=== PATIENT | female | born 2000 | race Caucasian/White ===

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

== ENCOUNTER 2021-05-01 14:42 | Outpatient (REF) | payer MEDICAID, SELFPAY ==
--- NOTE | 2021-05-01 13:15 | PAPFT_PTH ---
PATIENT: Marce Reynoso LOC: [facility] U#:[id number] AGE/SX: 20/F ROOM: RE05/01/[address]: Sheryl Freeman NP : 2000 BED: DIS: 05/01/2021 SPEC #: [id number] RECD: 05/01/21 18:24 STATUS: YOUSIF BEVERLY #: [id number] ELSA: 05/01/21 13:[address]: Sheryl Freeman NP DEPT: [facility] Cytology RECD BY: Skyla Macario ENTERED: 05/01/21 18:24 SP TYPE: PAPFT OTHR DR: Mary Quarles APRN Tissues: 1 - CX/ENDOCX FOR PAP SMEARS Procedures: PAP THIN PREP/[facility] Screening Comments: [id number]
== END 2021-05-01 14:43 | disposition home or self-care (01) ==
LOC: LBN 14:42
PROVIDERS: Visit Provider Nurse Practitioner Women's Health
DX: Z12.4 Encounter for screening for malignant neoplasm of cervix (principal)
CPT/HCPCS: 88142

== ENCOUNTER 2021-05-16 00:50 | Outpatient (CLI) | payer MEDICAID, SELFPAY ==
--- NOTE | 2021-05-16 06:45 | DI.US_ITS ---
Exam(s) US PELVIS TRANSVAGINAL EXAM: US PELVIS TRANSVAGINAL CLINICAL HISTORY: IUD surveillence, new onset cramping,PELVIC PAIN,Z30.431,R10.2. TECHNIQUE: Transabdominal and transvaginal pelvic ultrasound was performed using standard protocol. COMPARISON: US ABDOMEN ULTRASOUND (P) from 05/24/2015 FINDINGS: KIDNEYS: Kidneys are symmetric in size. No evidence of renal calculi. No evidence of hydronephrosis. No renal mass or cyst identified. UTERUS: Position: Anteverted. Size: 6.9 long by 3.3 AP by 4.6 transverse cm Endometrium: 0.8 cm. Normal for patient's menstrual status. There is an IUD in good position within t he endometrial canal. Myometrium: Unremarkable. Cervix: Unremarkable. OVARIES: Right: cm Cyst or mass: No suspicious cystic or solid masses. Left: cm Cyst or mass: No suspicious cystic or solid masses. DOPPLER: Color: Symmetric and uniform flow to both ovaries. No hyperemia. Duplex: Normal ovarian arterial waveforms visualized. CUL-DE-SAC: Free fluid: Trace amount of free fluid in the cul-de-sac which is likely physiologic. Other: None. IMPRESSION: 1. Normal sonographic appearance of the kidneys. 2. IUD is in good position within the endometrial canal. 3. Unremarkable bilateral ovaries. DATA REPOSITORY:
== END 2021-05-16 01:10 ==
PROVIDERS: Visit Provider Nurse Practitioner Women's Health
DX: R10.2 Pelvic and perineal pain (principal); Z30.431 Encounter for routine checking of intrauterine contraceptive device
CPT/HCPCS: 76830; 76856

== ENCOUNTER 2021-06-26 03:03 | Outpatient (CLI) | payer MEDICAID, SELFPAY ==
[2021-06-26 12:35] LABS: Abs Immature Grans 0.04 10^3/uL (0.0-0.06); Absolute Basophil Count 0.04 10^3/uL (0.0-0.2); Absolute Eosinophil Count 0.28 10^3/uL (0.0-0.7); Absolute Lymphocyte Count 3.21 10^3/uL (1.2-3.4); Basophils % 0.3; Eosinophils % 2.2; HCT 44.6 % (36.0-46.0); HGB 14.8 g/dL (11.2-15.7); Immature Grans % 0.3; Lymphocytes % 25.2; MCH 29.4 pg (27.0-33.0); MCHC 33.2 % (32.0-36.0); MCV 88.5 fL (80-95); MPV 10.2 fL (8.0-11.0); Monocytes % 5.5; Neutrophils % 66.5; Nucleated RBC 0 %; Platelet Count 260 10^3/uL (130-400); RBC 5.04 10^6/uL (3.93-5.22); RDW 12.4 % (11.7-14.6); RDW-SD 40.5 fL; WBC 12.72 10^3/uL (4.4-10.8)
[2021-06-26 12:36] LABS: Absolute Neutrophil Count 8.46 10^3/uL (1.2-6.7)
== END 2021-06-26 03:04 | disposition home or self-care (01) ==
LOC: LBO 03:03
PROVIDERS: Visit Provider Nurse Practitioner
DX: R22.2 Localized swelling, mass and lump, trunk (principal)
CPT/HCPCS: 36415; 85025

== ENCOUNTER → 2021-07-19 00:18 | Outpatient (CLI) | payer MEDICAID, SELFPAY ==
--- NOTE | 2021-07-19 07:00 | DI.US_ITS ---
Exam(s) US AXILLA RT EXAM: US AXILLA RT CLINICAL HISTORY: increase in size, tender lump of axilla, r22.30 TECHNIQUE: Ultrasound right axilla performed using standard protocol. COMPARISON: No exams were available for comparison FINDINGS: There is a hypoechoic lesion measuring 1.5 x 4 x 0.5 cm located beneath the subcutaneous fat in the a xilla which corresponds to the area of the patient's tenderness. It contains a small cystic componen t. Findings could represent a reactive lymph node or sebaceous cyst. DATA REPOSITORY:
== END ==
PROVIDERS: Visit Provider Nurse Practitioner
DX: R22.31 Localized swelling, mass and lump, right upper limb (principal)
CPT/HCPCS: 76642

== ENCOUNTER → 2021-10-17 18:01 | Outpatient (CLI) | payer MEDICAID, SELFPAY ==
--- NOTE | 2021-10-17 18:00 | DI.RAD_ITS ---
Exam(s) XR FOOT LT COMPLETE EXAM: XR FOOT LT COMPLETE CLINICAL HISTORY: left foot pain. TECHNIQUE: 2D digital imaging was performed. Three views. COMPARISON: CR LEFT ANKLE COMPLETE from 11/20/2016 CR LEFT FOOT COMPLETE from 11/20/2016 CR LEFT FOOT COMPLETE from 12/19/2016 CR LEFT FOOT COMPLETE from 01/16/2017 FINDINGS: BONES: Slight deformity of 5th metatarsal related to old fracture seen on prior exams. Subacute appe aring nondisplaced fracture of the 4th metatarsal at the proximal shaft. No acute fracture is presen t. No bony destructive lesion is seen. JOINTS: No dislocation present. SOFT TISSUE: Normal. Dorsal soft tissue swelling over metatarsal region. IMPRESSION: Subacute nondisplaced fracture the proximal shaft of the 4th metatarsal. DATA REPOSITORY: RADIATION DOSE DELIVERED:
--- NOTE | 2021-10-17 19:16 | DI.VRAD_ITS ---
PROCEDURE INFORMATION: Exam: XR Left Foot Exam date and time: 10/17/2021 6:31 PM Age: 21 years old Clinical indication: Other: Left foot pain; Patient HX: Previous FX 4 years ago TECHNIQUE: Imaging protocol: Radiologic exam of the Left foot. Views: 3 or more views. COMPARISON: CR LEFT FOOT COMPLETE 04/29/2017 12:01 PM FINDINGS: Bones/joints: Chronic appearing fracture deformity of the 5th metatarsal. Two horizontally oriented linear lucencies partially traversing the lateral aspect of the proximal 4th metatarsal with mildly sclerotic margins, likely healing fractures or stress fractures. Spurring of the anterior distal tibia. No acute fracture. No aggressive bone destruction. Joint spaces are within normal limits. Soft tissues: Soft tissue swelling of the dorsal forefoot. IMPRESSION: 1. Two horizontally oriented linear lucencies partially traversing the lateral aspect of the proximal 4th metatarsal with mildly sclerotic margins, likely healing fractures or stress fractures. 2. Spurring of the anterior distal tibia. 3. Soft tissue swelling of the dorsal forefoot. Dictated and Authenticated by: Celeste Blancas MD. Ordering:KJ Willams MD
== END ==
PROVIDERS: Visit Provider Physician Assistant
DX: M79.672 Pain in left foot (principal); S92.345A Nondisplaced fracture of fourth metatarsal bone, left foot, initial encounter for closed fracture
CPT/HCPCS: 73630

== ENCOUNTER 2021-11-07 12:14 | Outpatient (CLI) | payer MEDICAID, SELFPAY ==
--- NOTE | 2021-11-07 09:00 | DI.RAD_ITS ---
Exam(s) XR FOOT LT COMPLETE EXAM: XR FOOT LT COMPLETE CLINICAL HISTORY: 4th toe fracture. TECHNIQUE: 2D digital imaging was performed. COMPARISON: CR,XR XR FOOT LT COMPLETE from 10/17/2021 FINDINGS: 3 views Again noted is a transverse fracture in the proximal half of the 4th metatarsal. Fracture line is st ill visible but there is been slight further healing and no displacement. No additional fractures ev ident. No diastasis of the Lisfranc joint. No osseous lesions nor erosions. IMPRESSION: DATA REPOSITORY: RADIATION DOSE DELIVERED:
== END 2021-11-07 12:15 | disposition home or self-care (01) ==
LOC: DIORS 12:14
PROVIDERS: Visit Provider Physician Assistant
DX: S92.502D Displaced unspecified fracture of left lesser toe(s), subsequent encounter for fracture with routine healing (principal); X58.XXXD Exposure to other specified factors, subsequent encounter
CPT/HCPCS: 73630

== ENCOUNTER 2021-12-27 11:17 | Outpatient (CLI) | payer MEDICAID, SELFPAY ==
--- NOTE | 2021-12-27 10:45 | DI.RAD_ITS ---
Exam(s) XR FOOT LT COMPLETE EXAM: XR FOOT LT COMPLETE CLINICAL HISTORY: fx L foot TECHNIQUE: COMPARISON: CR XR FOOT LT COMPLETE from 11/07/2021 FINDINGS: Three views were obtained. There is a persistent visible fracture plane of the transverse fracture o f the proximal diaphysis of the 4th metatarsal, no change in appearance comparison with prior examina tion of November 07. IMPRESSION: RADIATION DOSE DELIVERED: Total DLP
== END 2021-12-27 11:18 | disposition home or self-care (01) ==
LOC: DIORS 11:17
PROVIDERS: Visit Provider Physician Assistant
DX: S92.342D Displaced fracture of fourth metatarsal bone, left foot, subsequent encounter for fracture with routine healing (principal); X58.XXXD Exposure to other specified factors, subsequent encounter
CPT/HCPCS: 73630

== ENCOUNTER 2022-08-20 21:34 | Outpatient (REF) | payer MEDICAID, SELFPAY ==
[2022-08-23 15:47] LABS: Chlamydia Result Negative (Negative); GC Result Negative (Negative)
== END 2022-08-20 21:35 | disposition home or self-care (01) ==
LOC: LBN 21:34
PROVIDERS: PCP Nurse Practitioner Family; Visit Provider Nurse Practitioner Family
DX: Z11.3 Encounter for screening for infections with a predominantly sexual mode of transmission (principal)
CPT/HCPCS: 87491; 87591

== ENCOUNTER 2022-11-01 21:17 | Emergency (ER) | payer MEDICAID, SELFPAY ==
[2022-11-01 21:24] VITALS: BP 121/70; PULSE 86; RESP 19; TEMP 37.3; O2SAT 98
--- NOTE | 2022-11-01 22:46 | ED.GENADUL_ITS ---
Discharge Plan Disposition Patient Disposition: Home Discharge Details Clinical Impression: Acute streptococcal pharyngitis Primary Care Provider: Archana Campbell ED Provider: Barrington Forte Home Meds and New Rx's Prescriptions: New amoxicillin 500 mg capsule 500 mg PO BID Qty: 20 0RF Continued Mirena 20 mcg/24 hours (5 yrs) 52 mg intrauterine device 1 device IY ONCE Rx Instructions: Inserted 11/03/18 ibuprofen 800 mg tablet 800 mg PO Q12H PRN (Reason: headache) Qty: 60 4RF tretinoin 0.025 % cream 20 applic Topical .QD PRN (Reason: acne) Qty: 20 3RF escitalopram oxalate 20 mg tablet 20 mg PO DAILY Qty: 90 3RF sumatriptan succinate 50 mg tablet 50 mg PO Q2H PRN (Reason: migraine headache) Qty: 60 1RF Rx Instructions: Take 1 tab at onset of headache; if no relief may repeat 1 tab in 2hr Discharge Instructions Instructions: Strep Throat (ED) Additional Instructions: You may continue to use [id number] pain medication or throat lozenges or spray as needed for discomfort. Please take medication as prescribed and complete the antibiotic until all pills are gone and do not save medications. If you develop any new or significant worsening of your symptoms return the emergency department for reassessment otherwise follow-up with primary care provider Referrals: Archana Campbell, [employer] [Primary Care Provider] - (As needed for reassessment) Discharge Data Discharge Date/Time-TO BE ENTERED AT DEPARTURE: 11/01/22 22:59 Medical Decision Making Patient presenting the emergency department for chief complaint of sore throat. Patient reports isolated sore throat that started this morning and is getting progressively worse as the days gone on. Patient denies any sick contacts. Physical exam shows tonsillar erythema and mild exudates otherwise unremarkable exam. Exam consistent with Pharyngitis with consideration of possible strep. no signs of deep neck space infection ( Retropharyngeal abscess, Soto's angina, Parapharyngeal space infection, Peritonsillar Abscess ([employer])) or Epiglottitis. Pt non toxic and stable. Rapid strep was performed and was positive. Discussed with patient risk versus benefits of the antibiotics versus NSAIDs or steroids and after full discussion patient states that she would prefer to be started on antibiotics. Patient started on amoxicillin. After discussion of diagnosis and plan of care patient has no further needs, questions, or concerns and states clear understanding to return to the emergency department for any worsening symptoms. This documentation was generated using [employer] dictation system, please disregard any oddities of phrase or misspellings. HPI General Mode of arrival: ambulatory . Date/Time Provider Initiated Documentation: 11/01/22 21:28 . Limitations to Documentation: no limitations . Information obtained by: patient and RN notes reviewed . History of Present Illness 22 year old F presents to the emergency department with the chief complaint of sore throat, described as moderate, Quality is described as aching, Patient started experiencing this hour(s) (12) and it has been constant. No relieving factors improve symptom(s), No exacerbating factors reported . Patient notes no other symptoms.. Related Data Home Medications Medication Instructions Recorded Confirmed levonorgestrel 21 mcg/24 hours (8 1 device intrauterine ONCE 01/22/19 11/01/22 yrs) 52 mg intrauterine device (Mirena) sumatriptan succinate 50 mg tablet 50 mg PO Q2H PRN migraine headache 01/22/19 11/01/22 #60 tabs ibuprofen 800 mg tablet 800 mg PO Q12H PRN headache #60 04/11/22 11/01/22 tabs tretinoin 0.025 % topical cream 20 applic topical .QD PRN acne #20 04/11/22 11/01/22 grams escitalopram oxalate 20 mg tablet 20 mg PO DAILY #90 tabs 10/01/22 11/01/22 amoxicillin 500 mg capsule 500 mg PO BID #20 caps 11/01/22 Previous Rx's Medication Instructions Recorded sumatriptan succinate 50 mg tablet 50 mg PO Q2H PRN migraine headache 01/22/19 #60 tabs ibuprofen 800 mg tablet 800 mg PO Q12H PRN headache #60 04/11/22 tabs tretinoin 0.025 % topical cream 20 applic topical .QD PRN acne #20 04/11/22 grams escitalopram oxalate 20 mg tablet 20 mg PO DAILY #90 tabs 10/01/22 amoxicillin 500 mg capsule 500 mg PO BID #20 caps 11/01/22 Allergies Allergy/AdvReac Type Severity Reaction Status Date / Time oxycodone HCl [From Percocet] Allergy Mild Hives/Itchi Verified 10/01/22 14:46 ng clarithromycin Allergy Unknown hives Verified 10/01/22 14:46 doxycycline Allergy Unknown Hives Verified 10/01/22 14:46 General Stated Complaint: Sorethroat DESTINEY: 5 Review of Systems Constitutional Constitutional: Denies chills, Denies fever(s), Denies headache(s) and Reports malaise ENT Ears, Nose, Mouth, and Throat: Denies change in voice, Denies dysphagia, Denies otalgia, Denies headache(s), Denies hoarseness, Denies lip swelling, Denies mouth lesions, Denies nasal congestion, Reports odynophagia, Reports sore throat, Denies throat swelling and Denies tongue swelling Cardiovascular Cardiovascular: Denies chest pain Respiratory Respiratory: Denies chest congestion and Denies cough Gastrointestinal Gastrointestinal: Denies dysphagia and Reports odynophagia Neurologic Neurologic: Denies headache(s) Allergic/Immunologic Allergic/Immunologic: Denies lip swelling, Denies throat swelling and Denies tongue swelling PFSH All Active Problems (Updated 11/01/22 @ 22:46 by Barrington Forte NP) Acute streptococcal pharyngitis (Acute) Major depressive disorder, recurrent (Chronic) [place] admissions 02/2014 and 08/2014 for depression, suicide attempt, cutting Generalized anxiety disorder (Chronic) Borderline personality disorder (Chronic) Post-traumatic stress disorder (Chronic) Migraine headache without aura (Chronic) Cigarette smoker (Chronic) Acne vulgaris (Chronic) IUD surveillance (Chronic) Mirena IUD inserted 2018 Obesity, Class III, BMI 40-49.9 (morbid obesity) (Chronic) Medical History Suicide attempt Surgical History S/P ORIF (open reduction internal fixation) fracture (~09/2014) Left 5th finger at [facility] Family History Mother Hyperlipidemia Asthma Hypertension Father Asthma Hyperlipidemia Type 2 diabetes mellitus COPD (chronic obstructive pulmonary disease) Heart disease Hypertension Brother , 36 Substance abuse Alcohol abuse Brother No problems noted. Sister Alcohol abuse Maternal Grandfather Hyperlipidemia Hypertension Maternal Grandmother No problems noted. Paternal Grandfather , in a war? No problems noted. Paternal Grandmother Obstructive sleep apnea Hypertension Social History Smoking/Tobacco Use Status: Current every day Tobacco Type: e-cigarettes Tobacco: How many years used: 7 Quit status: considering quitting Counseling given: provider counseling Smoking risk assessment performed?: Yes Alcohol Intake: current Alcohol Intake frequency: a few times a month Drug use: Occasionally Substance use type: does not use Counseling given: Yes Counseling provided: provider counseling Adopted: No Caregiver/Support person: No Household members: significant other Housing: house Communication Needs: None Do you need help understanding health information?: Rarely current occupation: works at [employer] Pets and animals: Yes Pets and animals: dog(s) Sexually active: Yes Do you think of yourself as: bisexual Current gender identity: female What is your relationship status?: never How often do you talk on the phone with friends or family?: three or more times per week How often do you get together with friends or relatives?: three or more times per week How often do you attend jewish or temple services?: 1-3 times per year Do you belong to any clubs or organized social groups?: no Panel score (0-1 are the most socially isolated patients): 1 What type of physical activity do you participate in: none Frequency: does not exercise Sandra/Advent: None Special sandra needs: No Seatbelt use: always Helmet use: No Drive intox or ride w/intox tow car driver: No Do you feel safe at home: Yes Do you feel safe in your relationship?: Yes Female Reproductive History Menstrual Age of Menarche: 10 control method: progestin IUCD (Mirena inserted 11/03/18) History History 0 Para Hx # Term Pregnancies Multiple births Hx # Pregnancies Ectopic pregnancies AB induced Hx Number of Living Children AB spontaneous Exam Const General: cooperative, healthy appearing, comfortable, no acute distress and not ill appearing Orientation: alert, awake and oriented x3 HENMT Head: normal to inspection and normocephalic Ears: hearing grossly normal bilaterally, external ears normal, TM's normal bilaterally and mastoids normal General nose exam: external nose normal and nares normal Face and sinus: normal facial exam Mouth: oral mucosae normal, lip normal, tongue normal, no audible dysphonia, no drooling and no trismus Throat: uvula midline, abnormal tonsil bilaterally erythema and hypertrophy 1+ and no peritonsillar masses Neck Neck: normal visual inspection, full ROM, no lymphadenopathy and no meningeal signs Resp Effort & Inspection: normal respiratory effort, able to speak in complete sentences and no stridor Auscultation: clear to auscultation bilaterally Cardio Rate: regular rate Rhythm: regular rhythm Heart Sounds: S1 normal and S2 normal Skin General skin exam: no rashes or lesions noted Course Vital Signs Vital signs: Vital Signs Temperature 37.3 C 11/01/22 21:24 Pulse 86 11/01/22 21:24 Respiratory Rate 19 11/01/22 21:24 Blood Pressure 121/70 11/01/22 21:24 Pulse Oximetry 98 11/01/22 21:24 Temperature 37.3 C 11/01/22 21:24 Temperature Source Oral 11/01/22 21:24 Pulse 86 11/01/22 21:24 Respiratory Rate 19 11/01/22 21:24 Respiratory Effort Normal, Non-Labored 11/01/22 21:45 Blood Pressure 121/70 11/01/22 21:24 Blood Pressure Position Sitting 11/01/22 21:24 Pulse Oximetry 98 11/01/22 21:24 Oxygen Delivery Method Room Air 11/01/22 21:24 Oxygen Flow Rate 0 11/01/22 21:24 Pain Level 5 11/01/22 21:24 Lab/Test Results Lab/Test Results: POC Strep Test-EVI(Rapid) Start: 11/01/22 21:21 Freq: .Rapid Strep Test Status: Active Protocol: Document 11/01/22 21:45 AB (Rec: 11/01/22 21:47 AB [id number]) Strep test-EVI(Rapid)-POC POC-Strep test-EVI (Rapid) Positive POC-Strep test-EVI (Rapid) Positive PAWSS Have you Been Recently Intoxicated or Drunk Within the Last 30 days?: No Have you Ever Experienced Previous Episodes of Alcohol Withdrawal?: No Have you ever Experienced Withdrawal Seizures?: No Have you ever Experienced Delirium Tremens(DT)s?: No Have you ever undergone Alcohol Rehabilitation Treatment (i.e, inpt ot outpatient treatment programs)?: No Have you ever Experienced Blackouts?: No Have you ever Combined Alcohol with other Downers within the last 90 days?: No Have you ever Combined Alcohol with any other Substance of Abuse during the last 90 days?: No Positive Blood Alcohol level on Presentation? [PCS.BAL]: No Evidence of Increased Autonomic Activity (i.e. HR>120, tremor, sweating, agitation, nausea)?: No Result: 0
[2022-11-01] MEDS: Amoxicillin 500 MG CAP PO (22:51)
[2022-11-01 22:58] VITALS: PULSE 88; RESP 18; TEMP 37.4; O2SAT 97
== END 2022-11-01 22:59 | disposition home or self-care (01) ==
PROVIDERS: Emergency Provider Nurse Practitioner Family; PCP Nurse Practitioner Family
DX: J02.0 Streptococcal pharyngitis
CPT/HCPCS: 87880; 99283

== ENCOUNTER 2022-12-09 16:15 | Emergency (ER) | payer MEDICAID, SELFPAY ==
--- NOTE | 2022-12-09 16:15 | DI.RAD_ITS ---
Exam(s) XR FOOT LT COMPLETE EXAM: XR FOOT LT COMPLETE CLINICAL HISTORY: Left lateral foot pain, injury. TECHNIQUE: 2D digital imaging was performed. COMPARISON: CR XR FOOT LT COMPLETE from 12/27/2021 FINDINGS: 3 views There is no evidence of acute fracture or diastasis of the Lisfranc joint. There is a partially heal ed transverse fracture in the proximal half of the 4th metatarsal, as previously present. No degener ative changes. No osseous lesions nor erosions. No pes planus. No inferior calcaneal spur. IMPRESSION: As above. No acute fractures. DATA REPOSITORY: RADIATION DOSE DELIVERED:
[2022-12-09 16:16] VITALS: BP 127/64; PULSE 110; RESP 18; TEMP 36.8; O2SAT 97
--- NOTE | 2022-12-09 16:29 | W.ED.GENAD ---
Discharge Plan Disposition Patient Disposition: Home Condition: Stable Discharge Details Clinical Impression: Sprain of foot, left Primary Care Provider: Archana Campbell ED Provider: Melody Gabriel Home Meds and New Rx's Prescriptions: Continued Mirena 20 mcg/24 hours (5 yrs) 52 mg intrauterine device 1 device IY ONCE Rx Instructions: Inserted 11/03/18 ibuprofen 800 mg tablet 800 mg PO Q12H PRN (Reason: headache) Qty: 60 4RF tretinoin 0.025 % cream 20 applic Topical .QD PRN (Reason: acne) Qty: 20 3RF escitalopram oxalate 20 mg tablet 20 mg PO DAILY Qty: 90 3RF sumatriptan succinate 50 mg tablet 50 mg PO Q2H PRN (Reason: migraine headache) Qty: 60 1RF Rx Instructions: Take 1 tab at onset of headache; if no relief may repeat 1 tab in 2hr amoxicillin 500 mg capsule 500 mg PO BID Qty: 20 0RF Patient Comments: RX completed 12/09/22 CT Discharge Instructions Instructions: Foot Sprain (ED) Additional Instructions: Wear the walking boot as needed for comfort. Rest ice compression elevation. Please take Tylenol or Ibuprofen with food every 4-6 hours as needed for pain and swelling. Please follow-up after 2 to 3 weeks with orthopedics if continued pain or any worsening pain. No evidence of acute fractures or broken bones on the x-ray. I do suspect a sprain. This may take up to 4 to 6 weeks to completely heal. Stand Alone Forms: Work Release Referrals: Gigi Chacon PA [PHYSICIANS PROCESS CAMERA OPERATOR] - 2 weeks Discharge Data Discharge Date/Time-TO BE ENTERED AT DEPARTURE: 12/09/22 18:05 Medical Decision Making 22-year-old female presents to the ER with a chief complaint of left foot pain after rolling her foot and feeling a crunch after stepping off a step approximately an hour prior to arrival. She reports that she has broken her foot in the past. She does have lateral foot pain with palpation no obvious deformity she does have some swelling. Denies any ankle pain distal CMS is intact. She has a past medical history of depressive disorder, anxiety borderline personality disorder, PTSD migraines, she is a smoker she reports she has no possibility of she is on control. No other associated symptoms or complaints at this time. She does have a healing bruise noted to her left lateral calf. It is nontender with palpation. X-ray negative for acute fracture. Will place patient in a walking boot with crutches if needed instructed on RICE procedures and follow-up if no better in 2 to 3 weeks. This text was generated using Sensus Experienceation system, please disregard any oddities of phrase or misspellings. Patient verbalized understanding all her questions were answered to the best my ability. Imaging Data Radiologic Study: Imaging: X-Ray Radiologist's impression: EXAM: XR FOOT LT COMPLETE CLINICAL HISTORY: Left lateral foot pain, injury. TECHNIQUE: 2D digital imaging was performed. COMPARISON: CR XR FOOT LT COMPLETE from 12/27/2021 FINDINGS: 3 views There is no evidence of acute fracture or diastasis of the Lisfranc joint. There is a partially healed transverse fracture in the proximal half of the 4th metatarsal, as previously present. No degenerative changes. No osseous lesions nor erosions. No pes planus. No inferior calcaneal spur. IMPRESSION: As above. No acute fractures. HPI General Mode of arrival: ambulatory. Date/Time Provider Initiated Documentation: 12/09/22 16:19. Limitations to Documentation: no limitations. Information obtained by: patient, RN notes reviewed and old records reviewed. HPI Narrative: 22-year-old female presents to the ER with a chief complaint of left foot pain after rolling her foot and feeling a crunch after stepping off a step approximately an hour prior to arrival. She reports that she has broken her foot in the past. She does have lateral foot pain with palpation no obvious deformity she does have some swelling. Denies any ankle pain distal CMS is intact. She has a past medical history of depressive disorder, anxiety borderline personality disorder, PTSD migraines, she is a smoker she reports she has no possibility of she is on control. No other associated symptoms or complaints at this time. She does have a healing bruise noted to her left lateral calf. It is nontender with palpation Related Data Home Medications Medication Instructions Recorded Confirmed levonorgestrel 21 mcg/24 hours (8 1 device intrauterine ONCE 01/22/19 12/09/22 yrs) 52 mg intrauterine device (Mirena) sumatriptan succinate 50 mg tablet 50 mg PO Q2H PRN migraine headache 01/22/19 12/09/22 #60 tabs ibuprofen 800 mg tablet 800 mg PO Q12H PRN headache #60 04/11/22 12/09/22 tabs tretinoin 0.025 % topical cream 20 applic topical .QD PRN acne #20 04/11/22 12/09/22 grams escitalopram oxalate 20 mg tablet 20 mg PO DAILY #90 tabs 10/01/22 12/09/22 amoxicillin 500 mg capsule 500 mg PO BID #20 caps 11/01/22 Previous Rx's Medication Instructions Recorded sumatriptan succinate 50 mg tablet 50 mg PO Q2H PRN migraine headache 01/22/19 #60 tabs ibuprofen 800 mg tablet 800 mg PO Q12H PRN headache #60 04/11/22 tabs tretinoin 0.025 % topical cream 20 applic topical .QD PRN acne #20 04/11/22 grams escitalopram oxalate 20 mg tablet 20 mg PO DAILY #90 tabs 10/01/22 amoxicillin 500 mg capsule 500 mg PO BID #20 caps 11/01/22 Allergies Allergy/AdvReac Type Severity Reaction Status Date / Time oxycodone HCl [From Percocet] Allergy Mild Hives/Itchi Verified 12/09/22 16:22 ng clarithromycin Allergy Unknown hives Verified 12/09/22 16:22 doxycycline Allergy Unknown Hives Verified 12/09/22 16:22 General Stated Complaint: Orthopedic DESTINEY: 4 Review of Systems Musculoskeletal Musculoskeletal: Reports as per HPI, Reports abnormal gait (Reports pain with weightbearing and nonweightbearing), Reports arthralgias and Reports joint swelling Neurologic Neurologic: Reports abnormal gait (Reports pain with weightbearing and nonweightbearing) PFSH All Active Problems (Updated 12/09/22 @ 17:49 by Melody Gabriel NP) Sprain of foot, left (Acute) Major depressive disorder, recurrent (Chronic) [facility] admissions 02/2014 and 08/2014 for depression, suicide attempt, cutting Generalized anxiety disorder (Chronic) Borderline personality disorder (Chronic) Post-traumatic stress disorder (Chronic) Migraine headache without aura (Chronic) Cigarette smoker (Chronic) Acne vulgaris (Chronic) IUD surveillance (Chronic) Mirena IUD inserted 2018 Obesity, Class III, BMI 40-49.9 (morbid obesity) (Chronic) Medical History Suicide attempt Surgical History S/P ORIF (open reduction internal fixation) fracture (~09/2014) Left 5th finger at [facility] Family History Mother Hyperlipidemia Asthma Hypertension Father Asthma Hyperlipidemia Type 2 diabetes mellitus COPD (chronic obstructive pulmonary disease) Heart disease Hypertension Brother , 36 Substance abuse Alcohol abuse Brother No problems noted. Sister Alcohol abuse Maternal Grandfather Hyperlipidemia Hypertension Maternal Grandmother No problems noted. Paternal Grandfather , in a war? No problems noted. Paternal Grandmother Obstructive sleep apnea Hypertension Social History Smoking/Tobacco Use Status: Current every day Tobacco Type: e-cigarettes Tobacco: How many years used: 7 Quit status: considering quitting Counseling given: provider counseling Smoking risk assessment performed?: Yes Alcohol Intake: current Alcohol Intake frequency: a few times a month Drug use: Occasionally Substance use type: does not use Counseling given: Yes Counseling provided: provider counseling Adopted: No Caregiver/Support person: No Household members: significant other Housing: house Communication Needs: None Do you need help understanding health information?: Rarely current occupation: works at [employer] Pets and animals: Yes Pets and animals: dog(s) Sexually active: Yes Do you think of yourself as: bisexual Current gender identity: female What is your relationship status?: never How often do you talk on the phone with friends or family?: three or more times per week How often do you get together with friends or relatives?: three or more times per week How often do you attend shinto or uatsdin services?: 1-3 times per year Do you belong to any clubs or organized social groups?: no Panel score (0-1 are the most socially isolated patients): 1 What type of physical activity do you participate in: none Frequency: does not exercise Sandra/Presybeterian: None Special sandra needs: No Seatbelt use: always Helmet use: No Drive intox or ride w/intox substitute bus driver: No Do you feel safe at home: Yes Do you feel safe in your relationship?: Yes Female Reproductive History Menstrual Age of Menarche: 10 control method: progestin IUCD (Mirena inserted 11/03/18) History History 0 Para Hx # Term Pregnancies Multiple births Hx # Pregnancies Ectopic pregnancies AB induced Hx Number of Living Children AB spontaneous Exam Extrem General: normal to inspection Left lower extremity: normal to inspection, normal capillary refill and foot Details: normal capillary refill and tenderness Location: of the lateral foot Location: in the mid-section Ankle/foot/toe images: 1. Tenderness and swelling Course Vital Signs Vital signs: Vital Signs Temperature 36.8 C 12/09/22 16:16 Pulse 110 H 12/09/22 16:16 Respiratory Rate 18 12/09/22 16:16 Blood Pressure 127/64 12/09/22 16:16 Pulse Oximetry 97 12/09/22 16:16 Temperature 36.8 C 12/09/22 16:16 Temperature Source Temporal Artery Scan 12/09/22 16:16 Pulse 110 H 12/09/22 16:16 Respiratory Rate 18 12/09/22 16:16 Respiratory Effort Normal 12/09/22 16:19 Blood Pressure 127/64 12/09/22 16:16 Blood Pressure Position Sitting 12/09/22 16:16 Pulse Oximetry 97 12/09/22 16:16 Oxygen Delivery Method Room Air 12/09/22 16:16 Oxygen Flow Rate 0 12/09/22 16:16 Pain Level 6 12/09/22 16:19 PAWSS Have you Been Recently Intoxicated or Drunk Within the Last 30 days?: No Have you Ever Experienced Previous Episodes of Alcohol Withdrawal?: No Have you ever Experienced Withdrawal Seizures?: No Have you ever Experienced Delirium Tremens(DT)s?: No Have you ever undergone Alcohol Rehabilitation Treatment (i.e, inpt ot outpatient treatment programs)?: No Have you ever Experienced Blackouts?: No Have you ever Combined Alcohol with other Downers within the last 90 days?: No Have you ever Combined Alcohol with any other Substance of Abuse during the last 90 days?: No Result: 0
[2022-12-09] MEDS: Ibuprofen 600 MG TAB PO (16:48)
== END 2022-12-09 18:05 | disposition home or self-care (01) ==
PROVIDERS: Emergency Provider Registered Nurse Emergency; PCP Nurse Practitioner Family
DX: S93.602A Unspecified sprain of left foot, initial encounter (principal); F17.290 Nicotine dependence, other tobacco product, uncomplicated; W18.49XA Other slipping, tripping and stumbling without falling, initial encounter; Y93.01 Activity, walking, marching and hiking; Y92.89 Other specified places as the place of occurrence of the external cause; Y99.9 Unspecified external cause status
CPT/HCPCS: 81025; 99284; 73630; 99283

== ENCOUNTER 2023-05-11 15:43 | Emergency (ER) | payer MEDICAID, SELFPAY ==
[2023-05-11 15:53] VITALS: BP 152/83; PULSE 87; RESP 17; TEMP 37; O2SAT 98
--- NOTE | 2023-05-11 15:58 | W.ED.GENAD ---
HPI General Date/Time Provider Initiated Documentation: 05/11/23 15:58. HPI Narrative: 22 year-old female presents to ED today by POV/ambulating with a chief complaint of dental pain with onset 2 days ago. Quality described as throbbing to known R upper severe dental decay, no radiation to fever, facial swelling, facial redness, trismus, vocal changes, excessive drooling, neck pain, does endorse pain going up into R nare. Severity is described as moderate. Palliating factors include nothing specific attempted. Provoking factors include nothing specific. Events leading up to the incident/Associated Symptoms: Patient has dental appointment tomorrow. Patient not anticoagulated. Related Data Home Medications Medication Instructions Recorded Confirmed levonorgestrel 21 mcg/24 hours (8 1 device intrauterine ONCE 01/22/19 05/11/23 yrs) 52 mg intrauterine device (Mirena) sumatriptan succinate 50 mg tablet 50 mg PO Q2H PRN migraine headache 01/22/19 05/11/23 #60 tabs ibuprofen 800 mg tablet 800 mg PO Q12H PRN headache #60 04/11/22 05/11/23 tabs tretinoin 0.025 % topical cream 20 applic topical .QD PRN acne #20 04/11/22 05/11/23 grams escitalopram oxalate 20 mg tablet 20 mg PO DAILY #90 tabs 10/01/22 05/11/23 amoxicillin 875 mg-potassium 1 tab PO BID dental infection 10 05/11/23 clavulanate 125 mg tablet days #20 tabs chlorhexidine gluconate 0.12 % 15 ml mucous membrane BID dental 05/11/23 mouthwash infection #1,893 mL Previous Rx's Medication Instructions Recorded sumatriptan succinate 50 mg tablet 50 mg PO Q2H PRN migraine headache 01/22/19 #60 tabs ibuprofen 800 mg tablet 800 mg PO Q12H PRN headache #60 04/11/22 tabs tretinoin 0.025 % topical cream 20 applic topical .QD PRN acne #20 04/11/22 grams escitalopram oxalate 20 mg tablet 20 mg PO DAILY #90 tabs 10/01/22 amoxicillin 875 mg-potassium 1 tab PO BID dental infection 10 05/11/23 clavulanate 125 mg tablet days #20 tabs chlorhexidine gluconate 0.12 % 15 ml mucous membrane BID dental 05/11/23 mouthwash infection #1,893 mL Allergies Allergy/AdvReac Type Severity Reaction Status Date / Time oxycodone HCl [From Percocet] Allergy Mild Hives/Itchi Verified 05/11/23 15:52 ng clarithromycin Allergy Unknown hives Verified 05/11/23 15:52 doxycycline Allergy Unknown Hives Verified 05/11/23 15:52 General Stated Complaint: DentalOral DESTINEY: 4 Review of Systems All systems reviewed & are unremarkable except as noted in HPI and below Exam Narrative Exam Narrative: GENERAL APPEARANCE: Well-nourished, non-toxic, awake and alert, atraumatic, no acute distress. SKIN: Warm, pink, dry, intact, without rashes/lesions/ulcerations. HEAD: Normocephalic, atraumatic, normal hair distribution for gender/age. EYES: Pupils PERRLA, EOMs intact without nystagmus, normal conjunctiva, no exudates on lids/lashes. ENT: Nares patent, no circumoral cyanosis, no facial swelling, uvula midline, no facial swelling or erythema, no trismus, severe diffuse dental decay, periodontal disease NECK: Supple, trachea midline, painless cervical ROM. LUNGS/CHEST: Non-labored respirations, normal A/P diameter, symmetrical expansion, no chest wall deformity HEART (CV/PV): No peripheral edema, no JVD. ABDOMEN: Soft, non-distended, no guarding. MSK: Normal ROM, no swelling/deformity to bilateral UEs or LEs, moving all extremities without weakness, no cyanosis, spine midline without tenderness, normal curvature. NEURO: Mental Status AAOx4 - alert to person, place, time, events No facial droop, no forehead involvement. Motor: No focal weakness - strength 5/5 in bilateral UEs and LEs, proximal and distal, symmetric. Sensory: sensation intact to light touch globally. Gait normal: patient ambulated without ataxia into ED room. PSYCH: euthymic, cooperative, pleasant, appropriate speech Course Vital Signs Vital signs: Vital Signs Temperature 37.0 C 05/11/23 15:53 Pulse 87 05/11/23 15:53 Respiratory Rate 17 05/11/23 15:53 Blood Pressure 152/83 H 05/11/23 15:53 Pulse Oximetry 98 05/11/23 15:53 Temperature 37.0 C 05/11/23 15:53 Temperature Source Temporal Artery Scan 05/11/23 15:53 Pulse 87 05/11/23 15:53 Respiratory Rate 17 05/11/23 15:53 Blood Pressure 152/83 H 05/11/23 15:53 Blood Pressure Position Sitting 05/11/23 15:53 Pulse Oximetry 98 05/11/23 15:53 Oxygen Delivery Method Room Air 05/11/23 15:53 Oxygen Flow Rate 0 05/11/23 15:53 Pain Level 6 05/11/23 15:53 Medical Decision Making This dictation utilizes [id number] dictation software and may contain unedited grammatical errors. 22 y/o F presents to ED today with a chief complaint of dental infection, onset for 2 days, has dental appointment tomorrow. No trismus, no facial swelling or erythema, uvula midline, managing secretions well, no fever. Patients' medical history: Noncontributory. Family and social history: Noncontributory. Pertinent exam findings / vital signs include ENT: Nares patent, no circumoral cyanosis, no facial swelling, uvula midline, no facial swelling or erythema, no trismus, severe diffuse dental decay, periodontal disease. Differential / pathologies of concern include dental infection, gingival abscess, not trismus or INVENTORY COORDINATOR. Diagnostic studies of: -None. Interventions of: -Outpatient Rx Augmentin, chlorhexidine. ED Course/Assessment/Plan: Patient presents with 2-day onset of right upper dental infection with severe diffuse dental decay, has adequate follow-up tomorrow, no red flag signs or symptoms of peritonsillar abscess or trismus, managing secretions well, tolerating p.o. intake, plan to prescribe Augmentin and chlorhexidine for prevention of future recurrence, counseled on therapeutic dosing Tylenol and ibuprofen, topical Anbesol, homeopathic like clove oil for dental pain. Findings not consistent with peritonsillar abscess, trismus, significant facial infection. Disposition of dental infection. Patient verbalized understanding of the plan and return to ED criteria and engaged in shared decision making. Medical Records Medical records reviewed: Yes I reviewed the patient's medical records. Quality:SDOH Health Related Social Needs: No Data to Display PFSH All Active Problems (Updated 05/11/23 @ 16:06 by HYUN Jordan) Dental infection (Acute) Major depressive disorder, recurrent (Chronic) [facility] admissions 02/2014 and 08/2014 for depression, suicide attempt, cutting Generalized anxiety disorder (Chronic) Borderline personality disorder (Chronic) Post-traumatic stress disorder (Chronic) Migraine headache without aura (Chronic) Cigarette smoker (Chronic) Acne vulgaris (Chronic) IUD surveillance (Chronic) Mirena IUD inserted 2019 Obesity, Class III, BMI 40-49.9 (morbid obesity) (Chronic) Medical History Suicide attempt Surgical History S/P ORIF (open reduction internal fixation) fracture (~09/2014) Left 5th finger at [facility] Family History Mother Hyperlipidemia Asthma Hypertension Father Asthma Hyperlipidemia Type 2 diabetes mellitus COPD (chronic obstructive pulmonary disease) Heart disease Hypertension Brother , 36 Substance abuse Alcohol abuse Brother No problems noted. Sister Alcohol abuse Maternal Grandfather Hyperlipidemia Hypertension Maternal Grandmother No problems noted. Paternal Grandfather , in a war? No problems noted. Paternal Grandmother Obstructive sleep apnea Hypertension Social History Smoking/Tobacco Use Status: Current every day Tobacco Type: e-cigarettes Tobacco: How many years used: 7 Quit status: considering quitting Counseling given: provider counseling Smoking risk assessment performed?: Yes Alcohol Intake: current Alcohol Intake frequency: a few times a month Drug use: Occasionally Substance use type: does not use Counseling given: Yes Counseling provided: provider counseling Adopted: No Caregiver/Support person: No Household members: significant other Housing: house Communication Needs: None Do you need help understanding health information?: Rarely current occupation: works at [employer] Pets and animals: Yes Pets and animals: dog(s) Sexually active: Yes Do you think of yourself as: bisexual Current gender identity: female What is your relationship status?: never How often do you talk on the phone with friends or family?: three or more times per week How often do you get together with friends or relatives?: three or more times per week How often do you attend orthodox or oriental orthodox services?: 1-3 times per year Do you belong to any clubs or organized social groups?: no Panel score (0-1 are the most socially isolated patients): 1 What type of physical activity do you participate in: none Frequency: does not exercise Sandra/Yazidism: None Special sandra needs: No Seatbelt use: always Helmet use: No Drive intox or ride w/intox taxi driver supervisor: No Do you feel safe at home: Yes Do you feel safe in your relationship?: Yes Female Reproductive History Menstrual Age of Menarche: 10 control method: progestin IUCD (Mirena inserted 11/03/18) History History 0 Para Hx # Term Pregnancies Multiple births Hx # Pregnancies Ectopic pregnancies AB induced Hx Number of Living Children AB spontaneous Discharge Plan Disposition Patient Disposition: Home Condition: Stable Discharge Details Clinical Impression: Dental infection Primary Care Provider: Archana Campbell ED Provider: Modesto Jaramillo Home Meds and New Rx's Prescriptions: New amoxicillin-pot clavulanate 875-125 mg tablet 1 tab PO BID 10 Days Qty: 20 0RF chlorhexidine gluconate 0.12 % mouthwash 15 ml mucous membrane BID Qty: 1893 0RF Rx Instructions: swish and spit with 15mL by mouth twice per day Continued Mirena 20 mcg/24 hours (5 yrs) 52 mg intrauterine device 1 device IY ONCE Rx Instructions: Inserted 11/03/18 ibuprofen 800 mg tablet 800 mg PO Q12H PRN (Reason: headache) Qty: 60 4RF tretinoin 0.025 % cream 20 applic Topical .QD PRN (Reason: acne) Qty: 20 3RF escitalopram oxalate 20 mg tablet 20 mg PO DAILY Qty: 90 3RF sumatriptan succinate 50 mg tablet 50 mg PO Q2H PRN (Reason: migraine headache) Qty: 60 1RF Rx Instructions: Take 1 tab at onset of headache; if no relief may repeat 1 tab in 2hr Discharge Instructions Instructions: Chlorhexidine (Into the mouth), Amoxicillin/Clavulanate Potassium (By mouth), Dental Abscess (ED) Additional Instructions: You were seen in the emergency department for your dental infection. I am starting you on antibiotics sent to [facility] in [place] for dental infection. Please follow-up with your dental appointment tomorrow, use the prescribed antiseptic mouth rinse twice per day as directed. Perform salt water gargles 3 times per day with warm salt water. Research homeopathic remedies like clove's for dental pain. Please use therapeutic dosing of Tylenol (acetamenophen) & Advil (ibuprofen) in an alternating fashion as follows: Take 1000mg of Tylenol every 6 hours without missing doses- that is 4 times per day. [place] in between the Tylenol dosings, take 400-600mg of Advil also on a 6 hour schedule, that is also 4 times per day. The daily maximum dosing of Tylenol is 4000mg, and the daily maximum dosing of Advil is 2400mg. This is safe to do for weeks. Please note that some common cold medications & prescription pain medications may contain acetamenophen and you need to read OTC drug labels and factor that in to maximum daily dosings. Please return for any severe vocal changes, excessive drooling, inability to move your jaw, worsening facial redness and swelling with fever. Referrals: Archana Campbell NP [Primary Care Provider] - Discharge Data Discharge Date/Time-TO BE ENTERED AT DEPARTURE: 05/11/23 16:18
[2023-05-11 16:08] VITALS: BP 152/83; PULSE 87; RESP 17; TEMP 37; O2SAT 98
== END 2023-05-11 16:18 | disposition home or self-care (01) ==
PROVIDERS: Emergency Provider Physician Assistant; PCP Nurse Practitioner Family
DX: K04.7 Periapical abscess without sinus (principal); K02.9 Dental caries, unspecified; F17.290 Nicotine dependence, other tobacco product, uncomplicated
CPT/HCPCS: 99283

== ENCOUNTER 2023-09-04 15:38 | Emergency (ER) | payer MEDICAID, SELFPAY ==
[2023-09-04 15:44] VITALS: BP 113/67; PULSE 84; RESP 16; TEMP 37; O2SAT 97
--- NOTE | 2023-09-04 15:45 | DI.RAD_ITS ---
Exam(s) XR HAND LT COMPLETE EXAM: XR HAND LT COMPLETE CLINICAL HISTORY: punched wall several days ago, pain. TECHNIQUE: 2D digital imaging was performed of the left hand. Three views were obtained. AP, later al and oblique views were obtained. COMPARISON: No exams were available for comparison FINDINGS: BONES: No acute fracture is present. No bony destructive lesion is seen. JOINTS: No dislocation present. SOFT TISSUE: Normal. IMPRESSION: Unremarkable radiographs of the left hand. DATA REPOSITORY: RADIATION DOSE DELIVERED:
--- NOTE | 2023-09-04 16:54 | W.ED.GENAD ---
Discharge Plan Disposition Patient Disposition: Home Condition: Stable Discharge Details Clinical Impression: Contusion of left hand Primary Care Provider: Archana Campbell ED Provider: Darren Freeman Home Meds and New Rx's Prescriptions: Continued Mirena 20 mcg/24 hours (5 yrs) 52 mg intrauterine device 1 device IY ONCE Rx Instructions: Inserted 11/03/18 ibuprofen 800 mg tablet 800 mg PO Q12H PRN (Reason: headache) Qty: 60 4RF tretinoin 0.025 % cream 20 applic Topical .QD PRN (Reason: acne) Qty: 20 3RF escitalopram oxalate 20 mg tablet 20 mg PO DAILY Qty: 90 3RF sumatriptan succinate 50 mg tablet 50 mg PO Q2H PRN (Reason: migraine headache) Qty: 60 1RF Rx Instructions: Take 1 tab at onset of headache; if no relief may repeat 1 tab in 2hr chlorhexidine gluconate 0.12 % mouthwash 15 ml mucous membrane BID Qty: 1893 0RF Rx Instructions: swish and spit with 15mL by mouth twice per day Discharge Instructions Additional Instructions: Your x-ray did not show any broken bones Follow-up with your primary care provider if still having pain next week If you feel more ill or severe like you are suffering from an emergent life-threatening emergency return to the emergency department for reevaluation HPI General Mode of arrival: ambulatory. Date/Time Provider Initiated Documentation: 09/04/23 15:40. Limitations to Documentation: no limitations. Information obtained by: patient. History of Present Illness 23 year old F presents to the emergency department with the chief complaint of left hand pain, described as mild, Quality is described as aching, Patient started experiencing this day(s) (3) and it has been constant. No relieving factors improve symptom(s), No exacerbating factors reported . Patient notes no other symptoms.. Patient did receive the following treatments prior to arrival, none Related Data Home Medications Medication Instructions Recorded Confirmed levonorgestrel 21 mcg/24 hr (up to 1 device intrauterine ONCE 01/22/19 05/11/23 8 years) 52 mg intrauterine device (Mirena) sumatriptan succinate 50 mg tablet 50 mg PO Q2H PRN migraine headache 01/22/19 05/11/23 #60 tabs ibuprofen 800 mg tablet 800 mg PO Q12H PRN headache #60 04/11/22 05/11/23 tabs tretinoin 0.025 % topical cream 20 applic topical .QD PRN acne #20 04/11/22 05/11/23 grams escitalopram oxalate 20 mg tablet 20 mg PO DAILY #90 tabs 10/01/22 05/11/23 chlorhexidine gluconate 0.12 % 15 ml mucous membrane BID dental 05/11/23 mouthwash infection #1,893 mL Previous Rx's Medication Instructions Recorded sumatriptan succinate 50 mg tablet 50 mg PO Q2H PRN migraine headache 01/22/19 #60 tabs ibuprofen 800 mg tablet 800 mg PO Q12H PRN headache #60 04/11/22 tabs tretinoin 0.025 % topical cream 20 applic topical .QD PRN acne #20 04/11/22 grams escitalopram oxalate 20 mg tablet 20 mg PO DAILY #90 tabs 10/01/22 chlorhexidine gluconate 0.12 % 15 ml mucous membrane BID dental 05/11/23 mouthwash infection #1,893 mL Allergies Allergy/AdvReac Type Severity Reaction Status Date / Time oxycodone HCl [From Percocet] Allergy Mild Hives/Itchi Verified 05/11/23 15:52 ng clarithromycin Allergy Unknown hives Verified 05/11/23 15:52 doxycycline Allergy Unknown Hives Verified 05/11/23 15:52 General Stated Complaint: Orthopedic DESTINEY: 4 Review of Systems All systems reviewed & are unremarkable except as noted in HPI and below Constitutional Constitutional: Denies chills, Denies fever(s) and Denies weakness Eyes Eyes: Denies loss of vision ENT Ears, Nose, Mouth, and Throat: Denies change in voice Cardiovascular Cardiovascular: Denies chest pain and Denies dyspnea Respiratory Respiratory: Denies dyspnea Gastrointestinal Gastrointestinal: Denies abdominal pain, Denies nausea and Denies vomiting Musculoskeletal Musculoskeletal: Denies joint swelling Neurologic Neurologic: Denies loss of vision and Denies weakness Exam Const General: no acute distress Orientation: alert HENMT Head: normal to inspection Ears: external ears normal General nose exam: external nose normal Mouth: moist mucous membranes Eyes General: appearance normal, both eyes and all related structures Neck Neck: normal visual inspection Resp Effort & Inspection: normal respiratory effort and able to speak in complete sentences Cardio Rate: regular rate Skin General skin exam: no rashes or lesions noted Neuro General: patient alert and patient oriented x3 Extrem General: normal to inspection, full ROM and capillary refill normal Psych Mental Status: mental status grossly normal Course Vital Signs Vital signs: Vital Signs Temperature 37.0 C 09/04/23 15:44 Pulse 84 09/04/23 15:44 Respiratory Rate 16 09/04/23 15:44 Blood Pressure 113/67 09/04/23 15:44 Pulse Oximetry 97 09/04/23 15:44 Temperature 37.0 C 09/04/23 15:44 Temperature Source Tympanic 09/04/23 15:44 Pulse 84 09/04/23 15:44 Respiratory Rate 16 09/04/23 15:44 Blood Pressure 113/67 09/04/23 15:44 Blood Pressure Position Sitting 09/04/23 15:44 Pulse Oximetry 97 09/04/23 15:44 Oxygen Delivery Method Room Air 09/04/23 15:44 Oxygen Flow Rate 0 09/04/23 15:44 Pain Level 3 09/04/23 15:44 Comment No APAP or ibuprofen today 09/04/23 15:44 Medical Decision Making 23-year-old female comes in with left hand pain. She says on Thursday she got upset and punched a wall. She has pain at the base of the left pinky. She has tenderness at the proximal portion of the left pinky, no visible or palpable deformities, has intact sensation and cap refill, full range of motion of the finger. No pain or tenderness in the wrist or elsewhere in the hand. She had x-rays done prior to my exam which showed no acute findings. Suspect contusion, advised to use ibuprofen and Tylenol as needed advised to follow-up with her PCP if not improving within a week. Differential Diagnosis Differential Diagnosis: Sprain, contusion, fracture Imaging Data Radiologic Study: Attestation: I personally reviewed and interpreted this imaging study as follows: Imaging: X-Ray Radiologist's impression: No acute findings Quality:SDOH Health Related Social Needs: No Data to Display PFSH All Active Problems (Updated 09/04/23 @ 16:56 by Darren Freeman MD) Contusion of left hand (Acute) Major depressive disorder, recurrent (Chronic) [facility] admissions 02/2014 and 08/2014 for depression, suicide attempt, cutting Generalized anxiety disorder (Chronic) Borderline personality disorder (Chronic) Post-traumatic stress disorder (Chronic) Migraine headache without aura (Chronic) Cigarette smoker (Chronic) Acne vulgaris (Chronic) IUD surveillance (Chronic) Mirena IUD inserted 2019 Obesity, Class III, BMI 40-49.9 (morbid obesity) (Chronic) Medical History Suicide attempt Surgical History S/P ORIF (open reduction internal fixation) fracture (~09/2014) Left 5th finger at [facility] Family History Mother Hyperlipidemia Asthma Hypertension Father Asthma Hyperlipidemia Type 2 diabetes mellitus COPD (chronic obstructive pulmonary disease) Heart disease Hypertension Brother , 36 Substance abuse Alcohol abuse Brother No problems noted. Sister Alcohol abuse Maternal Grandfather Hyperlipidemia Hypertension Maternal Grandmother No problems noted. Paternal Grandfather , in a war? No problems noted. Paternal Grandmother Obstructive sleep apnea Hypertension Social History Smoking/Tobacco Use Status: Current every day Tobacco Type: e-cigarettes Tobacco: How many years used: 7 Quit status: considering quitting Counseling given: provider counseling Smoking risk assessment performed?: Yes Alcohol Intake: current Alcohol Intake frequency: a few times a month Drug use: Occasionally Substance use type: does not use Counseling given: Yes Counseling provided: provider counseling Adopted: No Caregiver/Support person: No Household members: significant other Housing: house Communication Needs: None Do you need help understanding health information?: Rarely current occupation: works at [employer] Pets and animals: Yes Pets and animals: dog(s) Sexually active: Yes Do you think of yourself as: bisexual Current gender identity: female What is your relationship status?: never How often do you talk on the phone with friends or family?: three or more times per week How often do you get together with friends or relatives?: three or more times per week How often do you attend restorationism or mandaen services?: 1-3 times per year Do you belong to any clubs or organized social groups?: no Panel score (0-1 are the most socially isolated patients): 1 What type of physical activity do you participate in: none Frequency: does not exercise Sandra/Oriental Orthodox: None Special sandra needs: No Seatbelt use: always Helmet use: No Drive intox or ride w/intox driver's education instructor: No Do you feel safe at home: Yes Do you feel safe in your relationship?: Yes Female Reproductive History Menstrual Age of Menarche: 10 control method: progestin IUCD (Mirena inserted 11/03/18) History History 0 Para Hx # Term Pregnancies Multiple births Hx # Pregnancies Ectopic pregnancies AB induced Hx Number of Living Children AB spontaneous
== END 2023-09-04 17:05 | disposition home or self-care (01) ==
LOC: ER 17:07
PROVIDERS: Emergency Provider Emergency Medicine; PCP Nurse Practitioner Family
DX: S60.222A Contusion of left hand, initial encounter (principal); F17.210 Nicotine dependence, cigarettes, uncomplicated; W22.01XA Walked into wall, initial encounter; Y93.89 Activity, other specified
CPT/HCPCS: 99283; 73130

== ENCOUNTER 2024-02-08 18:14 | Outpatient (CLI) | payer MEDICAID, SELFPAY ==
--- OUTSIDE RECORDS SUMMARY | 2024-02-08 18:15 | XMS_ITS | Referral Summary ---
Author Organization Health system Address [address] [place] [address] Care Team Providers Care Level Vial Marker Name Role Phone Unavailable Primary Care Provider Unavailabl e Social History Tobacco Use Types Packs/Day Years Used Date Smoking Tobacco: Never Assessed Comments Unknown Sex and Gender Information Value Date Recorded Sex Assigned at Not on file Legal Sex Female 10:39 EST Gender Identity Not on file Sexual Orientation Not on file Plan of Treatment Not on file
--- OUTSIDE RECORDS SUMMARY | 2024-02-08 18:15 | XMS_ITS | Encounter Summary ---
Author Organization [facility] Address [address] [place] [address] Care Team Providers Care Bar Pilot Name Role Phone Unavailable Primary Care Provider Unavailabl e Encounter Details Date Type Department Care Team (Late st Contact Info) Description 05/02/2021 Lab Requisition [facility] Pathology & Laboratory Medicine - [address] [address] Sheryl Freeman, CAREER PLACEMENT SERVICES COUNSELOR [address] [place] [address] Encounter for other general examination Social History Tobacco Use Types Packs/Day Years Used Date Smoking Tobacco: Never Assessed Comments Unknown Sex and Gender Information Value Date Recorded Sex Assigned at Not on file Legal Sex Female 10:39 EST Gender Identity Not on file Sexual Orientation Not on file documented as of this encounter Plan of Treatment Not on file documented as of this encounter Procedures Procedure Name Priority Date/Time Associated Diagnosis Comments PAP TEST Today 05/01/2021 13:15 EST Encounter for other general examination documented in this encounter Results * PAP TEST (05/01/2021 13:15 EST) Specimens A. Cervix and/or Endocervix , ThinPrep Imaging System with Manual Evaluation 05/10/2021 14:32 EST [facility] Specimen Adequacy Satisfactory for Evaluation - transformation zone component present 05/10/2021 14:32 EST [facility] General Categorization Negative for intraepithelial lesion or malignancy 05/10/2021 14:32 EST [facility] Attestation . 05/10/2021 14:32 [facility] at 1432 Clinical History See below 05/10/19 14:32 EST [facility] Performing Lab [facility] 05/10/2021 14:32 EST [facility] Scanned Images 05/10/2021 14:32 EST [facility] Papanicolaou smear specimen (specimen) CERVIX UTERI STRUCTURE / Unknown 05/01/2021 13:15 EST 05/02/2021 10:41 EST us Sheryl Freeman CAREER PLACEMENT SERVICES COUNSELOR PATHOLOGY ORDERABLES Ivanna l Result [facility] [address] [place] [address] documented in this encounter Visit Diagnoses Diagnosis Encounter for other general examination documented in this encounter
--- OUTSIDE RECORDS SUMMARY | 2024-02-08 18:15 | XMS_ITS | Encounter Summary ---
Author Organization [facility] Address [address] [place] [id number] Care Team Providers Care Support Merchandiser Name Role Phone Unavailable Primary Care Provider Unavailabl e Encounter Details Date Type Department Care Team (Late st Contact Info) Description 08/21/[address] [facility] Pathology & Laboratory Medicine - [address] [address] Outr Resulting Lab, Provider Social History Tobacco Use Types Packs/Day Years [...] Procedure Name Priority Date/Time Associated Diagnosis Comments CHLAMYDIA/N. GONORRHOEAE AMPLIFIED NUCLEIC ACID Routine 08/20/2022 12:10 EDT documented in this encounter Results * CHLAMYDIA/N. GONORRHOEAE AMPLIFIED RNA (08/20/2022 12:10 EDT) Neisseria gonorrhoeae Result Negative Negative 08/23/2022 15:42 EDT [facility] Chlamydia trachomatis Result Negative Negative 08/23/2022 15:42 EDT [facility] Swab ENTIRE VAGINA / Unknown 08/20/2022 12:10 EDT 08/21/2022 17:28 EDT us Provider Outr Resulting Lab MICROBIOLOGY - GENER AL ORDERABLES Final Result [facility] [address] [place] [address] documented in this encounter Visit Diagnoses Not on filedocumented in this encounter
--- OUTSIDE RECORDS SUMMARY | 2024-02-08 18:15 | XMS_ITS | Clinical Summary ---
Author Organization [facility] Address [address] [place] [address] Care Team Providers Care Acid Retort Operator Name Role Phone Unavailable Primary Care Provider Unavailabl e Social History Tobacco Use Types Packs/Day Years Used Date Smoking Tobacco: Never Assessed Comments Unknown Sex and Gender Information Value Date Recorded Sex Assigned at Not on file Legal Sex Female 10:39 EST Gender Identity Not on file Sexual Orientation Not on file Plan of Treatment Health Maintenance Due Date Last Done Comments Hepatitis C Screen 1999 Hepatitis B Vaccine (1 of 3 - 19+ 3-dose series) 05/30 COVID-19 Vaccine (2022- season) 2022
--- NOTE | 2024-02-08 18:45 | DI.RAD_ITS ---
Exam(s) XR LUMBAR SPINE COMPLETE EXAM: XR LUMBAR SPINE COMPLETE CLINICAL HISTORY: evaluate pathology. TECHNIQUE: 2D digital imaging was performed. Five views. COMPARISON: No exams were available for comparison FINDINGS: BONES: No fracture or destructive lesion. Vertebral body heights are maintained. No facet hypertro phy identified . DISKS: Intervertebral disc spaces are maintained. ALIGNMENT: Lumbar spinal alignment is within normal limits. SOFT TISSUE: IUD. IMPRESSION: Unremarkable radiographs of the lumbar spine. DATA REPOSITORY: RADIATION DOSE DELIVERED:
--- NOTE | 2024-02-08 20:36 | DI.VRAD_ITS ---
PROCEDURE INFORMATION: Exam: XR Lumbosacral Spine Exam date and time: 02/08/2024 7:12 PM Age: 23 years old Clinical indication: Low back pain; Patient HX: Back pain for a couple days after workplace injury TECHNIQUE: Imaging protocol: Radiologic exam of the lumbosacral spine. Views: 4 or 5 views. COMPARISON: CT RENAL COLIC WO CONTRAST 10/17/2017 9:16 PM FINDINGS: Bones/joints: Osseous mineralization is normal. There are no inflammatory osseous erosive changes. The disc spaces are maintained without degenerative changes. No acute compression fractures or displaced fractures are identified. There is mild anterior wedging of a few lower thoracic vertebra, chronic. There are no subluxations. Both sacroiliac joints are patent and symmetric without evidence for degenerative change. There is no spondylolysis. Soft tissues: Unremarkable. Organs: There is an IUD projecting at the mid pelvis. IMPRESSION: 1. No degenerative changes or evidence of chronic inflammatory arthropathy. 2. No acute fractures or subluxations. 3. Mild anterior wedging of a few lower thoracic vertebra, which appears chronic Dictated and Authenticated by: Isidro Castillo MD. Ordering:CARLOS Barkley MD
== END 2024-02-08 18:34 ==
LOC: DI 18:14
PROVIDERS: PCP Nurse Practitioner Family; Visit Provider Nurse Practitioner Family
DX: M54.50 Low back pain, unspecified (principal)
CPT/HCPCS: 72110